=== PATIENT | male | born 1975 | race Caucasian/White ===

== ENCOUNTER 2023-12-04 10:30 | Inpatient (IN) | payer MEDICAID, OTHER, SELFPAY ==
[~2023-12-04] VITALS: Ht 175.3 cm; Wt 172.7 kg
[~2023-12-04 10:30] MED LIST: NO HOME MEDS
[2023-12-04 11:32] LABS: BASOPHILS # (AUTO) 0.1 X10'3 (0-0.2); BASOPHILS % (AUTO) 1.1 % (0-1); EOSINOPHILS # (AUTO) 0.1 X10'3 (0-0.9); EOSINOPHILS % (AUTO) 1.9 % (0-6); HEMATOCRIT 44.6 % (42.0-52.0); HEMOGLOBIN 14.9 g/dl (14.0-17.9); LYMPHOCYTES # (AUTO) 0.8 X10'3 (1.1-4.8); LYMPHOCYTES % (AUTO) 13.4 % (21-51); MEAN CORPUSCULAR HEMOGLOBIN 30.8 PG (27.0-31.0); MEAN CORPUSCULAR HGB CONC 33.3 g/dL (33.0-36.5); MEAN CORPUSCULAR VOLUME 92.4 FL (78-98); MEAN PLATELET VOLUME 9.9 FL (7.4-10.4); MONOCYTES # (AUTO) 0.6 X10'3 (0-0.9); MONOCYTES % (AUTO) 10.9 % (2-12); NEUTROPHILS # (AUTO) 4.3 X10'3 (1.8-7.7); NEUTROPHILS % (AUTO) 72.7 % (42-75); PLATELET COUNT 175 X10'3 (140-440); RED BLOOD COUNT 4.83 X10'6 (4.70-6.10); RED CELL DISTRIBUTION WIDTH 13.4 % (11.5-14.5); WHITE BLOOD COUNT 5.9 X10'3 (4.5-11.0)
[2023-12-04] MEDS: morphine 4 MG/ML inj SYRINge IV ONE (11:42)
[2023-12-04] MEDS: ondansetron/PF 4mg/2ml inj IV ONE (11:42)
[2023-12-04 11:49] LABS: ALANINE AMINOTRANSFERASE 29 U/L (12-78); ALBUMIN 3.5 G/DL (3.4-5.0); ALKALINE PHOSPHATASE 55 IU/L (46-116); ANION GAP 6 (8-16); ASPARTATE AMINO TRANSFERASE 14 U/L (10-37); BILIRUBIN,DIRECT 0.1 MG/DL (0-0.3); BILIRUBIN,TOTAL 0.6 MG/DL (0.1-1.0); BLOOD UREA NITROGEN 13 MG/DL (7-18); BUN/CREATININE RATIO 12.4 (10.0-20.0); CALCIUM 8.7 MG/DL (8.5-10.1); CHLORIDE 105 MMOL/L (99-107); CREATININE 1.05 MG/DL (0.60-1.10); GLUCOSE 100 MG/DL (70-104); POTASSIUM 4.3 MMOL/L (3.5-5.1); SODIUM 141 MMOL/L (135-145); TOTAL CARBON DIOXIDE 30.3 MMOL/L (24-32); eCRCL 88 ML/MIN; eGFR 76 ML/MIN
[2023-12-04] MEDS: normal saline 1000ml 1,000 ML IV ONE (14:50)
[2023-12-04 16:12] LABS: BILIRUBIN,URINE NEGATIVE (Neg); CLARITY,URINE SLIGHTLY CLOUDY (Clear); COLOR,URINE YELLOW (Yellow); GLUCOSE, URINE NEGATIVE (Neg); KETONES,URINE NEGATIVE (Neg); LEUKOCYTE ESTERASE ,URINE NEGATIVE (Neg); NITRITES, URINE NEGATIVE (Neg); OCCULT BLOOD,URINE NEGATIVE (Neg); PROTEIN,URINE NEGATIVE (Neg); UA COLLECTION TYPE NON-SPECIFIED; UROBILINOGEN,URINE 0.2 E.U/dL (0.2-1.0)
[2023-12-04 16:30] LABS: MUCUS STRANDS MANY /LPF (Neg); SQUAMOUS EPITHELIAL CELL,UR FEW /LPF (FEW)
[2023-12-04 16:31] LABS: BACTERIA,URINE 1+ /HPF (Neg); RBC,URINE 0-2 /HPF (0-2); WBC,URINE 0-4 /HPF (0-4)
[2023-12-04 16:43] LABS: URINE AMPHETAMINE SCREEN POSITIVE (Neg); URINE BARBITUATE SCREEN NEGATIVE (Neg); URINE BENZODIAZEPINES SCREEN NEGATIVE (Neg); URINE CANNABINOID SCREEN POSITIVE (Neg); URINE COCAINE SCREEN NEGATIVE (Neg); URINE METHADONE SCREEN NEGATIVE (Neg); URINE OPIATE SCREEN POSITIVE (Neg); URINE PHENCYCLIDINE SCREEN NEGATIVE (Neg)
[2023-12-05] VITALS (9 sets, daily range): BP systolic 121–149; BP diastolic 78–108; PULSE 69–83; RESP 18–21; TEMP 97.5–98.2; O2SAT 93–98
[2023-12-05] MEDS ORDERED: mag hydrox/Alum hydrox/simeth 30ml oral suspension PO PRN (01:55)
[2023-12-05] MEDS ORDERED: ondansetron/PF 4mg/2ml inj IV PRN (01:55)
[2023-12-05] MEDS ORDERED: magnesium Cl slow-release 64mg tablet PO PRN (01:55)
[2023-12-05] MEDS ORDERED: magnesium sulf-water 2g/50mL 50 ML IV PRN (01:55)
[2023-12-05] MEDS ORDERED: acetaminophen 325mg tablet PO PRN (01:55)
[2023-12-05] MEDS ORDERED: potassium Cl 40MEQ/1/2NS 520ml 520 ML IV PRN (01:55)
[2023-12-05] MEDS ORDERED: magnesium sulf-water 4G/100mL 100 ML IV PRN (01:55)
[2023-12-05] MEDS ORDERED: potassium Cl 20 mEq SR tablet PO PRN ×2 (01:55)
[2023-12-05] MEDS ORDERED: morphine 2 MG/ML inj. syringe IV PRN (01:55)
[2023-12-05] MEDS: morphine 2 MG/ML inj. syringe IV PRN (03:32)
[2023-12-05] MEDS: ketorolac trometh. 30mg/ml inj. IV PRN (04:14)
[2023-12-05] MEDS: docusate sod 100mg capsule PO SCH (08:00)
[2023-12-05] MEDS: K and/or MAG REPLACEMENT MC SCH (08:00)
[2023-12-05] MEDS: enoxaparin 40mg/0.4ml syringe SQ SCH (20:02)
[2023-12-06 06:00] VITALS: BP 142/86; PULSE 74; RESP 18; TEMP 98; O2SAT 92
[2023-12-06 07:12] LABS: BASOPHILS % (AUTO) 0.9 % (0-1); EOSINOPHILS # (AUTO) 0.1 X10'3 (0-0.9); EOSINOPHILS % (AUTO) 2.2 % (0-6); HEMATOCRIT 42.1 % (42.0-52.0); HEMOGLOBIN 14.3 g/dl (14.0-17.9); LYMPHOCYTES # (AUTO) 0.9 X10'3 (1.1-4.8); LYMPHOCYTES % (AUTO) 19.4 % (21-51); MEAN CORPUSCULAR HEMOGLOBIN 31.2 PG (27.0-31.0); MEAN CORPUSCULAR VOLUME 91.7 FL (78-98); MEAN PLATELET VOLUME 10.9 FL (7.4-10.4); MONOCYTES # (AUTO) 0.6 X10'3 (0-0.9); MONOCYTES % (AUTO) 11.9 % (2-12); NEUTROPHILS % (AUTO) 65.6 % (42-75); PLATELET COUNT 167 X10'3 (140-440); RED BLOOD COUNT 4.59 X10'6 (4.70-6.10); RED CELL DISTRIBUTION WIDTH 13.4 % (11.5-14.5); WHITE BLOOD COUNT 4.6 X10'3 (4.5-11.0)
[2023-12-06 07:21] LABS: ALANINE AMINOTRANSFERASE 29 U/L (12-78); ALBUMIN 3.1 G/DL (3.4-5.0); ALBUMIN/GLOBULIN RATIO 0.9 (1.1-1.5); ALKALINE PHOSPHATASE 46 IU/L (46-116); ANION GAP 5 (8-16); ASPARTATE AMINO TRANSFERASE 18 U/L (10-37); BILIRUBIN,TOTAL 0.6 MG/DL (0.1-1.0); BLOOD UREA NITROGEN 9 MG/DL (7-18); BUN/CREATININE RATIO 12.7 (10.0-20.0); CALCIUM 8.5 MG/DL (8.5-10.1); CHLORIDE 103 MMOL/L (99-107); CREATININE 0.71 MG/DL (0.60-1.10); GLUCOSE 89 MG/DL (70-104); MAGNESIUM 1.8 MG/DL (1.5-2.4); POTASSIUM 4.1 MMOL/L (3.5-5.1); SODIUM 138 MMOL/L (135-145); TOTAL CARBON DIOXIDE 30.4 MMOL/L (24-32); TOTAL PROTEIN 6.4 G/DL (6.4-8.2); eCRCL 130 ML/MIN; eGFR > 90 ML/MIN
[2023-12-06 08:00] VITALS: RESP 18; O2SAT 92
[2023-12-06 10:00] VITALS: BP 143/91; PULSE 83; RESP 20; TEMP 97.3; O2SAT 90
[2023-12-06 18:00] VITALS: BP 149/99; PULSE 75; RESP 20; TEMP 97.9; O2SAT 94
[2023-12-06 20:00] VITALS: RESP 20; O2SAT 94
[2023-12-06] MEDS: LIDOcaine 5% patch TP SCH (20:55)
[2023-12-06 22:00] VITALS: BP 133/74; PULSE 64; RESP 19; TEMP 97.4; O2SAT 96
[2023-12-07 05:49] LABS: BASOPHILS # (AUTO) 0.1 X10'3 (0-0.2); BASOPHILS % (AUTO) 1.3 % (0-1); EOSINOPHILS # (AUTO) 0.1 X10'3 (0-0.9); EOSINOPHILS % (AUTO) 2.4 % (0-6); HEMATOCRIT 44.4 % (42.0-52.0); HEMOGLOBIN 15.1 g/dl (14.0-17.9); LYMPHOCYTES % (AUTO) 24.5 % (21-51); MEAN CORPUSCULAR HGB CONC 34.1 g/dL (33.0-36.5); MEAN PLATELET VOLUME 10.1 FL (7.4-10.4); MONOCYTES # (AUTO) 0.6 X10'3 (0-0.9); MONOCYTES % (AUTO) 13.4 % (2-12); NEUTROPHILS # (AUTO) 2.4 X10'3 (1.8-7.7); NEUTROPHILS % (AUTO) 58.4 % (42-75); PLATELET COUNT 168 X10'3 (140-440); RED BLOOD COUNT 4.88 X10'6 (4.70-6.10); RED CELL DISTRIBUTION WIDTH 13.2 % (11.5-14.5); WHITE BLOOD COUNT 4.1 X10'3 (4.5-11.0)
[2023-12-07 06:11] LABS: ALANINE AMINOTRANSFERASE 32 U/L (12-78); ALBUMIN 3.3 G/DL (3.4-5.0); ALBUMIN/GLOBULIN RATIO 0.9 (1.1-1.5); ALKALINE PHOSPHATASE 51 IU/L (46-116); ANION GAP 7 (8-16); ASPARTATE AMINO TRANSFERASE 17 U/L (10-37); BILIRUBIN,TOTAL 0.7 MG/DL (0.1-1.0); BLOOD UREA NITROGEN 10 MG/DL (7-18); CALCIUM 8.8 MG/DL (8.5-10.1); CHLORIDE 101 MMOL/L (99-107); CREATININE 0.83 MG/DL (0.60-1.10); GLUCOSE 90 MG/DL (70-104); POTASSIUM 4.1 MMOL/L (3.5-5.1); SODIUM 139 MMOL/L (135-145); TOTAL CARBON DIOXIDE 31.2 MMOL/L (24-32); TOTAL PROTEIN 6.8 G/DL (6.4-8.2); eCRCL 111 ML/MIN; eGFR > 90 ML/MIN
[2023-12-07 06:56] VITALS: BP 138/83; PULSE 69; RESP 18; TEMP 97.5; O2SAT 90
[2023-12-07 08:00] VITALS: RESP 18; O2SAT 90
[2023-12-07 10:00] VITALS: BP 144/94; PULSE 73; RESP 18; TEMP 97.1; O2SAT 95
[2023-12-07] MEDS ORDERED: hydrALAZINE 20mg/ml inj. IV PRN (18:10)
[2023-12-07 18:20] VITALS: BP 152/100; PULSE 72; RESP 18; TEMP 97.9; O2SAT 97
[2023-12-07 20:40] VITALS: RESP 18; O2SAT 97
[2023-12-07 22:25] VITALS: BP 153/89; PULSE 69; RESP 18; TEMP 97.3; O2SAT 98
[2023-12-08] MEDS: HYDROcodone/acetaminophen 5mg/325mg tablet PO PRN (05:57)
[2023-12-08 05:59] LABS: BASOPHILS % (AUTO) 0.6 % (0-1); EOSINOPHILS # (AUTO) 0.1 X10'3 (0-0.9); EOSINOPHILS % (AUTO) 2.2 % (0-6); HEMATOCRIT 46.6 % (42.0-52.0); HEMOGLOBIN 15.6 g/dl (14.0-17.9); LYMPHOCYTES # (AUTO) 1.4 X10'3 (1.1-4.8); LYMPHOCYTES % (AUTO) 25.3 % (21-51); MEAN CORPUSCULAR HEMOGLOBIN 30.5 PG (27.0-31.0); MEAN CORPUSCULAR HGB CONC 33.5 g/dL (33.0-36.5); MEAN PLATELET VOLUME 10.5 FL (7.4-10.4); MONOCYTES # (AUTO) 0.7 X10'3 (0-0.9); NEUTROPHILS # (AUTO) 3.1 X10'3 (1.8-7.7); NEUTROPHILS % (AUTO) 58.9 % (42-75); PLATELET COUNT 175 X10'3 (140-440); RED BLOOD COUNT 5.12 X10'6 (4.70-6.10); RED CELL DISTRIBUTION WIDTH 13.4 % (11.5-14.5); WHITE BLOOD COUNT 5.3 X10'3 (4.5-11.0)
[2023-12-08 06:00] VITALS: BP 131/83; PULSE 73; RESP 18; TEMP 97.4; O2SAT 96
[2023-12-08 06:16] LABS: ALANINE AMINOTRANSFERASE 31 U/L (12-78); ALBUMIN 3.3 G/DL (3.4-5.0); ALBUMIN/GLOBULIN RATIO 0.9 (1.1-1.5); ALKALINE PHOSPHATASE 53 IU/L (46-116); ANION GAP 6 (8-16); ASPARTATE AMINO TRANSFERASE 13 U/L (10-37); BILIRUBIN,TOTAL 0.7 MG/DL (0.1-1.0); BLOOD UREA NITROGEN 13 MG/DL (7-18); BUN/CREATININE RATIO 13.7 (10.0-20.0); CALCIUM 8.8 MG/DL (8.5-10.1); CHLORIDE 101 MMOL/L (99-107); CREATININE 0.95 MG/DL (0.60-1.10); GLUCOSE 87 MG/DL (70-104); MAGNESIUM 2.1 MG/DL (1.5-2.4); POTASSIUM 4.3 MMOL/L (3.5-5.1); SODIUM 137 MMOL/L (135-145); TOTAL PROTEIN 6.9 G/DL (6.4-8.2); eCRCL 97 ML/MIN; eGFR 85 ML/MIN
[2023-12-08 08:00] VITALS: RESP 18; O2SAT 96
[2023-12-08 10:00] VITALS: BP 122/86; PULSE 78; RESP 18; TEMP 97.7; O2SAT 95
[2023-12-08] MEDS: predniSONE 20 mg tablet PO ONE (13:57)
[2023-12-08 18:00] VITALS: BP 138/89; PULSE 78; RESP 16; TEMP 98; O2SAT 94
[2023-12-08 18:29] LABS: CREATINE KINASE 59 U/L (39-308); FREE T4 (FREE THYROXINE) 0.94 NG/DL (0.73-1.40)
[2023-12-08 22:00] VITALS: BP 122/77; PULSE 92; RESP 20; TEMP 97.3; O2SAT 90
[2023-12-09 06:00] VITALS: BP 125/86; PULSE 90; RESP 19; TEMP 96.3; O2SAT 94
[2023-12-09 07:39] LABS: BASOPHILS % (AUTO) 0.4 % (0-1); EOSINOPHILS % (AUTO) 0.2 % (0-6); HEMATOCRIT 48.6 % (42.0-52.0); HEMOGLOBIN 16.4 g/dl (14.0-17.9); LYMPHOCYTES # (AUTO) 0.9 X10'3 (1.1-4.8); LYMPHOCYTES % (AUTO) 10.5 % (21-51); MEAN CORPUSCULAR HEMOGLOBIN 30.7 PG (27.0-31.0); MEAN CORPUSCULAR HGB CONC 33.6 g/dL (33.0-36.5); MEAN CORPUSCULAR VOLUME 91.2 FL (78-98); MEAN PLATELET VOLUME 10.9 FL (7.4-10.4); MONOCYTES # (AUTO) 0.5 X10'3 (0-0.9); MONOCYTES % (AUTO) 5.8 % (2-12); NEUTROPHILS # (AUTO) 7.2 X10'3 (1.8-7.7); NEUTROPHILS % (AUTO) 83.1 % (42-75); PLATELET COUNT 208 X10'3 (140-440); RED BLOOD COUNT 5.34 X10'6 (4.70-6.10); RED CELL DISTRIBUTION WIDTH 13.1 % (11.5-14.5); WHITE BLOOD COUNT 8.6 X10'3 (4.5-11.0)
[2023-12-09 08:00] VITALS: RESP 19; O2SAT 94
[2023-12-09 08:02] LABS: LARGE PLATELETS FEW; PLATELET ESTIMATE NORMAL
[2023-12-09 08:15] LABS: ALANINE AMINOTRANSFERASE 34 U/L (12-78); ALBUMIN 3.6 G/DL (3.4-5.0); ALBUMIN/GLOBULIN RATIO 0.9 (1.1-1.5); ALKALINE PHOSPHATASE 57 IU/L (46-116); ANION GAP 7 (8-16); ASPARTATE AMINO TRANSFERASE 17 U/L (10-37); BILIRUBIN,TOTAL 0.5 MG/DL (0.1-1.0); BLOOD UREA NITROGEN 13 MG/DL (7-18); BUN/CREATININE RATIO 14.9 (10.0-20.0); CALCIUM 9.3 MG/DL (8.5-10.1); CHLORIDE 102 MMOL/L (99-107); CREATINE KINASE 59 U/L (39-308); CREATININE 0.87 MG/DL (0.60-1.10); GLUCOSE 99 MG/DL (70-104); MAGNESIUM 2.2 MG/DL (1.5-2.4); POTASSIUM 4.9 MMOL/L (3.5-5.1); SODIUM 138 MMOL/L (135-145); TOTAL CARBON DIOXIDE 28.6 MMOL/L (24-32); TOTAL PROTEIN 7.6 G/DL (6.4-8.2); eCRCL 106 ML/MIN; eGFR > 90 ML/MIN
[2023-12-09] MEDS: predniSONE 20 mg tablet PO SCH (08:23)
[2023-12-09] MEDS: magnesium hydroxide 30ml (MOM) UD suspension PO PRN (08:23)
[2023-12-09 10:00] VITALS: BP 120/74; PULSE 74; RESP 14; TEMP 97.7; O2SAT 95
[2023-12-09 18:00] VITALS: BP 147/87; PULSE 78; RESP 16; TEMP 98.7; O2SAT 97
[2023-12-09 22:00] VITALS: BP 123/68; PULSE 74; RESP 14; TEMP 97.7; O2SAT 98
[2023-12-10 06:49] VITALS: BP 95/61; PULSE 83; RESP 14; TEMP 98.4; O2SAT 92
[2023-12-10 07:25] LABS: BASOPHILS # (AUTO) 0.1 X10'3 (0-0.2); BASOPHILS % (AUTO) 0.5 % (0-1); EOSINOPHILS % (AUTO) 0.3 % (0-6); HEMATOCRIT 48.2 % (42.0-52.0); HEMOGLOBIN 16.2 g/dl (14.0-17.9); LYMPHOCYTES # (AUTO) 1.5 X10'3 (1.1-4.8); LYMPHOCYTES % (AUTO) 14.9 % (21-51); MEAN CORPUSCULAR HEMOGLOBIN 30.9 PG (27.0-31.0); MEAN CORPUSCULAR HGB CONC 33.7 g/dL (33.0-36.5); MEAN CORPUSCULAR VOLUME 91.7 FL (78-98); MEAN PLATELET VOLUME 10.7 FL (7.4-10.4); MONOCYTES # (AUTO) 0.7 X10'3 (0-0.9); MONOCYTES % (AUTO) 6.6 % (2-12); NEUTROPHILS # (AUTO) 7.9 X10'3 (1.8-7.7); NEUTROPHILS % (AUTO) 77.7 % (42-75); PLATELET COUNT 207 X10'3 (140-440); RED BLOOD COUNT 5.25 X10'6 (4.70-6.10); RED CELL DISTRIBUTION WIDTH 13.7 % (11.5-14.5); WHITE BLOOD COUNT 10.1 X10'3 (4.5-11.0)
[2023-12-10 07:56] LABS: ALANINE AMINOTRANSFERASE 41 U/L (12-78); ALBUMIN 3.8 G/DL (3.4-5.0); ALKALINE PHOSPHATASE 57 IU/L (46-116); ANION GAP 6 (8-16); ASPARTATE AMINO TRANSFERASE 16 U/L (10-37); BILIRUBIN,TOTAL 0.4 MG/DL (0.1-1.0); BLOOD UREA NITROGEN 15 MG/DL (7-18); BUN/CREATININE RATIO 17.6 (10.0-20.0); CHLORIDE 102 MMOL/L (99-107); CREATININE 0.85 MG/DL (0.60-1.10); GLUCOSE 92 MG/DL (70-104); SODIUM 139 MMOL/L (135-145); TOTAL CARBON DIOXIDE 31.3 MMOL/L (24-32); TOTAL PROTEIN 7.7 G/DL (6.4-8.2); eCRCL 109 ML/MIN; eGFR > 90 ML/MIN
[2023-12-10 10:00] VITALS: BP 127/87; PULSE 75; RESP 16; TEMP 97.3; O2SAT 96
[2023-12-10 10:31] LABS: LARGE PLATELETS FEW; PLATELET ESTIMATE NORMAL
[2023-12-10 18:00] VITALS: BP 134/80; PULSE 73; RESP 18; TEMP 96.6; O2SAT 96
[2023-12-10 20:00] VITALS: RESP 18; O2SAT 96
[2023-12-10 22:00] VITALS: BP 139/70; PULSE 79; RESP 16; TEMP 97.9; O2SAT 98
[2023-12-11 06:00] VITALS: BP 128/83; PULSE 83; RESP 15; TEMP 97.2; O2SAT 94
[2023-12-11 08:00] VITALS: RESP 15; O2SAT 94
[2023-12-11] MEDS ORDERED: predniSONE 20 mg tablet PO SCH (08:00)
[2023-12-11 10:00] VITALS: BP 131/56; PULSE 91; RESP 16; TEMP 98; O2SAT 93
[2023-12-11 18:00] VITALS: BP 103/53; PULSE 89; RESP 18; TEMP 97.6; O2SAT 95
[2023-12-11 20:00] VITALS: RESP 18; O2SAT 95
[2023-12-11 22:00] VITALS: BP 102/60; PULSE 72; RESP 17; TEMP 98.4; O2SAT 93
[2023-12-12 06:00] VITALS: BP 134/77; PULSE 68; RESP 17; TEMP 97.7; O2SAT 93
[2023-12-12 10:00] VITALS: BP 152/89; PULSE 89; RESP 18; TEMP 97.1; O2SAT 98
[2023-12-12 18:00] VITALS: BP 121/78; PULSE 81; RESP 20; TEMP 97.4; O2SAT 95
[2023-12-12 22:00] VITALS: BP 103/45; PULSE 78; RESP 17; TEMP 98; O2SAT 93
[2023-12-13 05:00] VITALS: BP 136/73; PULSE 80; RESP 19; TEMP 98.1; O2SAT 94
[2023-12-13] MEDS ORDERED: predniSONE 20 mg tablet PO SCH (08:30)
[2023-12-13 10:00] VITALS: BP 137/83; PULSE 87; RESP 20; TEMP 97.4; O2SAT 91
[2023-12-13 18:26] VITALS: BP 128/94; PULSE 81; RESP 18; TEMP 97.2; O2SAT 97
[2023-12-13 22:00] VITALS: BP 147/87; PULSE 70; RESP 19; TEMP 97.8; O2SAT 98
[2023-12-14 05:00] VITALS: BP 118/64; PULSE 91; RESP 19; TEMP 98; O2SAT 91
[2023-12-14 10:00] VITALS: BP 138/93; PULSE 98; RESP 21; TEMP 97.5; O2SAT 92
[2023-12-14] MEDS ORDERED: oxyCODONE/APAP 5-325mg tablet PO PRN (17:20)
[2023-12-14 20:00] VITALS: RESP 0; O2SAT 94
[2023-12-14] MEDS: oxyCODONE/APAP 10/325mg tablet PO PRN (21:07)
[2023-12-15 06:00] VITALS: BP 125/82; PULSE 80; RESP 18; TEMP 97.3; O2SAT 94
[2023-12-15 08:00] VITALS: RESP 18; O2SAT 94
[2023-12-15 10:00] VITALS: BP 132/77; PULSE 88; RESP 18; TEMP 98.1; O2SAT 94
[2023-12-15 14:06] LABS: BASOPHILS # (AUTO) 0.1 X10'3 (0-0.2); BASOPHILS % (AUTO) 1.7 % (0-1); EOSINOPHILS # (AUTO) 0.2 X10'3 (0-0.9); EOSINOPHILS % (AUTO) 2.6 % (0-6); HEMATOCRIT 46.9 % (42.0-52.0); HEMOGLOBIN 15.7 g/dl (14.0-17.9); LYMPHOCYTES # (AUTO) 1.1 X10'3 (1.1-4.8); LYMPHOCYTES % (AUTO) 18.8 % (21-51); MEAN CORPUSCULAR HEMOGLOBIN 30.6 PG (27.0-31.0); MEAN CORPUSCULAR HGB CONC 33.4 g/dL (33.0-36.5); MEAN CORPUSCULAR VOLUME 91.7 FL (78-98); MEAN PLATELET VOLUME 9.7 FL (7.4-10.4); MONOCYTES # (AUTO) 0.8 X10'3 (0-0.9); MONOCYTES % (AUTO) 12.6 % (2-12); NEUTROPHILS # (AUTO) 3.9 X10'3 (1.8-7.7); NEUTROPHILS % (AUTO) 64.3 % (42-75); PLATELET COUNT 207 X10'3 (140-440); RED BLOOD COUNT 5.11 X10'6 (4.70-6.10); RED CELL DISTRIBUTION WIDTH 13.7 % (11.5-14.5)
[2023-12-15 14:09] LABS: ALBUMIN 3.4 G/DL (3.4-5.0); ANION GAP 4 (8-16); BLOOD UREA NITROGEN 16 MG/DL (7-18); BUN/CREATININE RATIO 13.8 (10.0-20.0); CALCIUM 8.9 MG/DL (8.5-10.1); CHLORIDE 102 MMOL/L (99-107); CREATININE 1.16 MG/DL (0.60-1.10); GLUCOSE 92 MG/DL (70-104); POTASSIUM 4.5 MMOL/L (3.5-5.1); SODIUM 138 MMOL/L (135-145); TOTAL CARBON DIOXIDE 31.9 MMOL/L (24-32); eCRCL 80 ML/MIN; eGFR 68 ML/MIN
[2023-12-15 18:00] VITALS: BP 149/101; PULSE 74; RESP 14; TEMP 97.6; O2SAT 96
[2023-12-15 20:00] VITALS: RESP 14; O2SAT 96
[2023-12-15 22:00] VITALS: BP 121/70; PULSE 82; RESP 22; TEMP 98.2; O2SAT 98
[2023-12-16 06:30] VITALS: BP 117/79; PULSE 75; RESP 18; TEMP 97.3; O2SAT 94
[2023-12-16 08:12] LABS: ALBUMIN 3.3 G/DL (3.4-5.0); ANION GAP 4 (8-16); BLOOD UREA NITROGEN 18 MG/DL (7-18); BUN/CREATININE RATIO 19.4 (10.0-20.0); CALCIUM 8.6 MG/DL (8.5-10.1); CHLORIDE 101 MMOL/L (99-107); CREATININE 0.93 MG/DL (0.60-1.10); GLUCOSE 86 MG/DL (70-104); POTASSIUM 4.5 MMOL/L (3.5-5.1); SODIUM 136 MMOL/L (135-145); eCRCL 99 ML/MIN; eGFR 87 ML/MIN
[2023-12-16 11:00] VITALS: BP 127/73; PULSE 79; RESP 14; TEMP 97.7; O2SAT 99
[2023-12-16 15:41] VITALS: RESP 19
== END 2023-12-16 18:25 | disposition critical access hospital (66) | DRG 551 ==
LOC: ER 10:30 → ED HOLD 12-05 02:01 → ORTHO 4S 12-05 03:47
PROVIDERS: ADMIT Surgery Surgical Critical Care; ATTEND Internal Medicine
DX: M48.061 Spinal stenosis, lumbar region without neurogenic claudication (principal); N17.0 Acute kidney failure with tubular necrosis; Z68.43 Body mass index [BMI] 50.0-59.9, adult; Z59.00 Homelessness unspecified; M51.36 Other intervertebral disc degeneration, lumbar region; R32 Unspecified urinary incontinence; F15.10 Other stimulant abuse, uncomplicated; F32.A Depression, unspecified; F11.10 Opioid abuse, uncomplicated; F12.10 Cannabis abuse, uncomplicated; E66.9 Obesity, unspecified; M21.372 Foot drop, left foot; G47.33 Obstructive sleep apnea (adult) (pediatric); M21.371 Foot drop, right foot; F17.210 Nicotine dependence, cigarettes, uncomplicated; F41.9 Anxiety disorder, unspecified; Z88.5 Allergy status to narcotic agent
CPT/HCPCS: 36415; 72125; 72128; 72131; 80048; 80053; 80076; 80305; 81001; 82085; 82550; 83735; 84132; 84439; 84443; 85008; 85025; 85651; 86140; 87081; 96374; 96375; 97116; 97161; 97530; 99285; A6258; G0378; J1650; J1885; J2270; J2405; J7030; J7512